=== PATIENT | female | born 1960 | race Caucasian/White ===

== ENCOUNTER → 2016-12-30 | Outpatient (CLI) | payer OTHER ==
[2015-01-09 23:41] VITALS: BP 129/73
--- NOTE | 2016-12-30 09:23 | KCIC ---
Examination: MRI of the pelvis and left hip History: history of fall from horse, hip pain, groin pain for 3 weeks COMPARISON: None available TECHNIQUE: Multiplanar, sequence MR imaging of the pelvis and left hip was performed without contrast. FINDINGS: The bilateral femoral heads are within the acetabula. There is nondisplaced fracture of the left sacrum involving the left sacral ala. The fracture line extending inferiorly up to left S1, S2 levels. There is nondisplaced fracture of the left inferior pubic ramus and nondisplaced fracture of the superior wall of the left acetabulum with the fracture line extending anteriorly to involve the anterior column of the left acetabulum at junction of the anterior wall of the and left superior pubic ramus. The attachment of the hamstring tendons to the ischial tuberosity, attachment of the gluteal tendons to the greater trochanter and attachment of the iliopsoas tendon to the lesser trochanter grossly appears intact. Mild muscle edema identified in the adductor muscles about the left inferior pubic ramus. The visualized labrum grossly appears unremarkable. IMPRESSION: 1. Fractures of the left sacrum, left acetabulum involving the left superior pubic ramus and nondisplaced fracture of the left inferior pubic ramus as described above. CT bony pelvis may be useful for assessing fracture orientation. Electronically signed by: Eusebio Grigsby MD (12/30/2016 9:20 AM)
== END | disposition home or self-care (01) ==
LOC: KCIC MRI 07:56
PROVIDERS: ATTEND Physician Assistant
DX: V80.010A Animal-rider injured by fall from or being thrown from horse in noncollision accident, initial encounter (principal); Y93.52 Activity, horseback riding
CPT/HCPCS: 72195; 73721

== ENCOUNTER → 2017-07-16 | Outpatient (CLI) | payer OTHER ==
[2017-07-10 15:00] VITALS: BP 136/81
[~2017-07-16] MED LIST: BUPR300T4 PO; INSU100V8 SQ; LEVO50TA5 PO; LOSA25TA4 PO; RANI300T PO; ROPI0.25 PO
== END | disposition home or self-care (01) ==
LOC: LAB 10:53
PROVIDERS: ATTEND Physician Assistant Surgical
DX: S52.501D Unspecified fracture of the lower end of right radius, subsequent encounter for closed fracture with routine healing (principal); X58.XXXD Exposure to other specified factors, subsequent encounter
CPT/HCPCS: 36415; 82306

== ENCOUNTER 2019-06-18 21:43 | Emergency (ER) | payer OTHER ==
[~2019-06-18] VITALS: Ht 152.4 cm; Wt 64.4 kg
[~2019-06-18 21:43] MED LIST changes: -LOSA25TA4 PO; +LOSA25TA54 PO
[2019-06-18 22:14] VITALS: BP 142/79
--- NOTE | 2019-06-18 22:31 | PHYS DOC ---
Past Medical History Past Medical History: Diabetes-Type II (KRISTEN BRAVO APRN) Past Surgical History: Cholecystectomy Additional Past Surgical Histo: right arm, knee,carpal tunnel (KRISTEN BRAVO APRN) Alcohol Use: None Drug Use: None (KRISTEN BRAVO APRN) Adult General Chief Complaint Chief Complaint: LOWEREXTREMITY INJURY [facility] HPI Patient is a 58 year old [female who presents with [pain to left knee and ankle. Patient reports she had been working today, feeding horses, when she had steps in a wet pile of feed and had fallen, With her left leg landing underneath her, and twisting her left ankle. States she has had pain since that time, had taken any oxycodone at 1:00 this afternoon for pain, which seemed to help her but she continues to have some pain at this time and has not taken anything else since that time. States she had some numbness in her left foot after the fall, has resolved. Denies pain to head, neck, back, hip. (KRISTEN BRAVO APRN) Review of Systems Review of Systems Constitutional: Denies fever or chills [] Eyes: Denies change in visual acuity, redness, or eye pain [] HENT: Denies nasal congestion or sore throat [] Respiratory: Denies cough or shortness of breath [] Cardiovascular: No additional information not addressed in HPI [] GI: Denies abdominal pain, nausea, vomiting, bloody stools or diarrhea [] : Denies dysuria or hematuria [] Musculoskeletal: Denies back pain Complains of pain to left knee and left ankle.[] Integument: Denies rash or skin lesions [] Neurologic: Denies headache, focal weakness or sensory changes [] Endocrine: Denies polyuria or polydipsia [] All other systems were reviewed and found to be within normal limits, except as documented in this note. (KRISTEN BRAVO APRN) Current Medications Current Medications Current Medications Medications (Trade) Dose Ordered Sig/Sean Start Time Stop Time Status Last Admin Dose Admin Tramadol HCl (Ultram) 50 mg 1X ONCE 06/18/19 23:00 06/18/19 23:01 DC 06/18/19 23:00 50 MG (DIEUDONNE FERNANDEZ MD) Allergies Allergies Allergies Coded Allergies Type Severity Reaction Last Updated Verified No Known Drug Allergies 01/09/15 No (DIEUDONNE FERNANDEZ MD) Physical Exam Physical Exam Constitutional: Well developed, well nourished, no acute distress, non-toxic appearance. [] HENT: Normocephalic, atraumatic, bilateral external ears normal, oropharynx moist, no oral exudates, nose normal. [] Eyes: PERRLA, EOMI, conjunctiva normal, no discharge. [] Neck: Normal range of motion, no tenderness, supple, no stridor. [] Cardiovascular:Heart rate regular rhythm, no murmur [] Lungs & Thorax: Bilateral breath sounds clear to auscultation [] Abdomen: Bowel sounds normal, soft, no tenderness, no masses, no pulsatile ma sses. [] Skin: Warm, dry, no erythema, no rash. [] Back: No tenderness, no CVA tenderness. [] Extremities: No cyanosis, no clubbing, ROM intact, no edema. Tenderness on palpation to knee, superior, and tenderness to left ankle lateral malleolus, with noted swelling to lateral malleolus. Full ROM noted to ankle. Decreased ROM noted to left knee on active motion but intact on passive motion.[] Neurologic: Alert and oriented X 3, normal motor function, normal sensory function, no focal deficits noted. [] Psychologic: Affect normal, judgement normal, mood normal. [] (KRISTEN BRAVO APRN) Current Patient Data Vital Signs Vital Signs Date Time Temp Pulse Resp B/P (MAP) Pulse Ox O2 Delivery O2 Flow Rate FiO2 06/18/19 23:00 18 98 Room Air 06/18/19 22:14 99.0 106 142/79 (100) 99.0 (DIEUDONNE FERNANDEZ MD) EKG EKG [] (KRISTEN BRAVO APRN) Radiology/Procedures Radiology/Procedures No acute fracture or findings per Dr Fernandez. [] (KRISTEN BRAVO APRN) Course & Med Decision Making Course & Med Decision Making Pertinent Labs and Imaging studies reviewed. (See chart for details) [Discussed no acute fracture. Discussed use of ankle stirrup. Discussed continued use of tylenol/ibuprofen for discomfort. Use of home pain medications. Follow up with PCP (KRISTEN BRAVO APRN) Course & Med Decision Making Staff Physician Addendum: I was working in the ER during the course of this patient's visit. I was available for consultation as needed, but I was not directly involved in the care of this patient. (DIEUDONNE FERNANDEZ MD) Dragon Disclaimer Dragon Disclaimer This electronic medical record was generated, in whole or in part, using a voice recognition dictation system. (KRISTEN BRAVO APRN) Departure Departure Impression: Primary Impression: Ankle sprain Additional Impression: Knee contusion Disposition: HOME, SELF-CARE Condition: STABLE Referrals: NEELIMA MCGARRY MD (PCP) Patient Instructions: Ankle Sprain, Knee Pain Additional Instructions: As we discussed, wear the ankle splint for the next 4-5 days to help the ligaments heal and prevent you from rolling your ankle again. Take Tylenol/Ibuprofen for pain. Elevate your leg. Apply Ice. If you continue to have problems and discomfort after a week, follow up with your primary care provider. Problem Qualifiers Primary Impression: Ankle sprain Encounter type: initial encounter Involved ligament of ankle: unspecified ligament Laterality: left Qualified Codes: S93.402A - Sprain of unspecified ligament of left ankle, initial encounter Additional Impression: Knee contusion Encounter type: initial encounter Laterality: left Qualified Codes: S80.02XA - Contusion of left knee, initial encounter KRISTEN BRAVO APRN Jun 18, 2019 22:31 DIEUDONNE FERNANDEZ MD Jun 19, 2019 03:49
[2019-06-18] MEDS ORDERED: traMADol 50 MG TABLET PO ONE (23:00)
--- NOTE | 2019-06-19 08:13 | RAD ---
Indication: Pain and swelling. TECHNIQUE: 3 views of the left knee and 3 views of the left ankle COMPARISON:None FINDINGS: Knee: No acute fracture or dislocation. Mild tricompartmental osteoarthritis. Small suprapatellar effusion. Ankle: No acute fracture or dislocation. Ankle mortise is intact. Moderate soft tissue swelling seen overlying lateral malleolus. IMPRESSION: As above. Electronically signed by: Bharathi Adrian DO (06/19/2019 8:10 AM) [facility]
--- NOTE | 2019-06-19 08:13 | RAD ---
Indication: Pain and swelling. TECHNIQUE: 3 views of the left knee and 3 views of the left ankle COMPARISON:None FINDINGS: Knee: No acute fracture or dislocation. Mild tricompartmental osteoarthritis. Small suprapatellar effusion. Ankle: No acute fracture or dislocation. Ankle mortise is intact. Moderate soft tissue swelling seen overlying lateral malleolus. IMPRESSION: As above. Electronically signed by: Bharathi Adrian DO (06/19/2019 8:10 AM) [facility]
== END 2019-06-19 00:02 | disposition home or self-care (01) ==
LOC: ER 21:43
DX: S93.402A Sprain of unspecified ligament of left ankle, initial encounter (principal); S80.02XA Contusion of left knee, initial encounter; E11.9 Type 2 diabetes mellitus without complications; Z90.49 Acquired absence of other specified parts of digestive tract; X50.9XXA Other and unspecified overexertion or strenuous movements or postures, initial encounter; Y93.89 Activity, other specified; Y92.89 Other specified places as the place of occurrence of the external cause; Y99.8 Other external cause status
CPT/HCPCS: 29515; 73562; 73610; 99284-25